=== PATIENT | female | born 1995 | race American Indian/Alaskan Native ===

== ENCOUNTER 2021-05-26 15:30 | Outpatient (CLI) | payer MEDICAID ==
[2021-05-26] MEDS ORDERED: LACTATED RINGERS 1,000 ML IV SCH ×2 (15:45→16:00)
[2021-05-26] MEDS ORDERED: LACTATED RINGERS 500 ML IV ONE (16:00)
[2021-05-26 16:46] LABS: Basophils % (Auto) 0.2 % (0.0-1.8); Eosinophils # (Auto) 0.1 K/mm3 (0.0-0.4); Eosinophils % (Auto) 0.5 % (0.0-4.3); Hematocrit 28.4 % (30.3-42.9); Hemoglobin 9.5 gm/dl (10.1-14.3); Lymphocytes # (Auto) 2.4 K/mm3 (1.2-5.4); Lymphocytes % (Auto) 22.8 % (13.4-35.0); Mean Corpuscular HGB Conc 33 % (30-34); Mean Corpuscular Volume 88 fl (79-97); Monocytes # (Auto) 0.8 K/mm3 (0.0-0.8); Monocytes % (Auto) 7.6 % (0.0-7.3); Platelet Count 285 K/mm3 (140-440); Red Blood Count 3.23 M/mm3 (3.65-5.03); Red Cell Distribution Width 14.4 % (13.2-15.2)
[2021-05-26 16:53] LABS: Bilirubin,Urine NEG (Negative); Blood,Urine NEG (Negative); Color,Urine Yellow (Yellow); Mucus,Urine 3+ /HPF
[2021-05-26 16:57] LABS: Amphetamine Screen,Urine Negative; Benzodiazepines Screen,Urine Negative; Cocaine Screen,Urine Negative; Methadone Screen,Urine Negative; Opiate Screen,Urine Negative
[2021-05-26 18:10] LABS: Cannabinoid Screen,Urine Positive
[2021-05-26] MEDS ORDERED: ACETAMINOPHEN W/CODEINE 300-30 MG TAB PO ONE (18:24)
--- NOTE | 2021-05-26 18:47 | Ultrasound Report ---
ULTRASOUND OBSTETRIC ULTRASOUND BIOPHYSICAL PROFILE INDICATION: History of limited OB care. Evaluate well-being. Clinical Gestational Age (GA): 35 weeks 5 days TECHNIQUE: Transabdominal. COMPARISON: None available. FINDINGS: There is a single intrauterine . Biparietal Diameter = 8.31 cm = 33 weeks, 3 day(s). Head Circumference = 27.64 cm = 30 weeks, 2 day(s). Abdominal Circumference = 27.10 cm = 31 weeks, 1 day(s). Femur Length = 6.17 cm = 32 weeks, 0 day(s). Average Ultrasound Age (AUA) = 31 weeks, 5 day(s). Heart Rate: 138 beats per minute. Estimated Weight in grams (if calculated): 1783 Estimated Weight Growth Percentile (if calculated): 61 Position: cephalic. Cervix: closed. Length in cm (if measured): Not measured Placenta: Fundal/right lateral and free of the os. Amniotic Fluid Volume: normal Amniotic Fluid Index (RAMANDEEP) in cm (if calculated): 8.2. Maternal Adnexa: No significant abnormality. BIOPHYSICAL PROFILE: BREATHING MOVEMENT = 2 GROSS BODY MOVEMENT = 2 TONE = 2 QUALITATIVE AMNIOTIC FLUID VOLUME = 2 TOTAL BIOPHYSICAL SCORE = 8/8 IMPRESSION: 1. Single, living intrauterine with estimated sonographic age of 31 weeks, 5 day(s). 2. Biophysical profile score of 8/8. 3. No significant abnormalities. Signer Name: Jeyson Holliday MD Signed: 05/26/2021 6:42 PM Workstation Name: [id number]
== END 2021-05-26 19:03 | disposition home or self-care (01) ==
LOC: TRG 15:30 → APU 16:03 → TRG 19:03
PROVIDERS: ATTEND Student in an Organized Health Care Education/Training Program
DX: O62.9 Abnormality of forces of labor, unspecified (principal); O26.893 Other specified pregnancy related conditions, third trimester; R10.9 Unspecified abdominal pain; Z79.899 Other long term (current) drug therapy; Z3A.35 35 weeks gestation of pregnancy
CPT/HCPCS: 36415; 59025; 76805; 76816; 76819; 80307; 81001; 85025; 96360